=== PATIENT | female | born 1940 | race Caucasian/White ===

== ENCOUNTER 2021-10-24 15:44 | Emergency (ER) | payer MEDICARE, BC ==
[~2021-10-24] VITALS: Ht 165.1 cm; Wt 80.0 kg
[2021-10-24 15:50] VITALS: BP 170/77
--- NOTE | 2021-10-24 16:13 | PHYS DOC ---
Past History Past Surgical History: Hysterectomy Adult General Chief Complaint Chief Complaint: LACERATION/AVULSION HPI HPI Patient is an 81-year-old female presenting via POV for head injury. Injury onset was just prior to arrival. Patient reportedly was attempting to go outside when the door was hit with a fouzia of wind and flew back hitting her anterior head. She did not fall, no loss of consciousness. at bedside, reports patient has history of dementia so entirety of HPI unclear but she can confirm that there was no fall to ground that patient was upright although he did not see mechanism of injury. There was bleeding that was controlled with pressure. Nonetheless, obvious laceration to anterior forehead in addition to right orbit pain concerned prompting him to bring patient in for evaluation. States patient has been at baseline health with no recent medical changes, patient takes an aspirin daily with no other reported anticoagulants or antiplatelet medications. Patient's last tetanus unknown Review of Systems Review of Systems Fourteen body systems of review of systems have been reviewed. See HPI for pertinent positives and negative responses, other leblanc all other systems are negative, non-pertinent or non-contributory Allergies Allergies Allergies Coded Allergies Type Severity Reaction Last Updated Verified No Known Drug Allergies 10/24/21 No Physical Exam Physical Exam Constitutional: Well developed, well nourished, no acute distress, non-toxic appearance. HENT: Normocephalic, atraumatic, bilateral external ears normal, oropharynx moist, no oral exudates, nose normal. Eyes: PERRLA, EOMI, conjunctiva normal, no discharge. Neck: Normal range of motion, no tenderness, supple, no stridor. Cardiovascular: Heart rate regular, sinus rhythm, no murmurs rubs or gallops Lungs & Thorax: Bilateral breath sounds clear to auscultation Abdomen: Bowel sounds normal, soft, no tenderness, no masses, no pulsatile masses. Nonsurgical abdomen, no peritoneal signs Skin: Warm, dry, no erythema, no rash. Large linear laceration present to anterior forehead 8.5 cm in length with epidermis and dermis involvement and minimal subcutaneous fat with no bone showing or other obvious muscle/tendon/ligament Back: No tenderness, no CVA tenderness. Extremities: No tenderness, no cyanosis, no clubbing, ROM intact, no edema. Neurologic: Alert and oriented X 3, cranial nerves II through XII intact normal motor & sensory function, no focal deficits noted. Psychologic: Affect normal, judgement normal, mood normal. Memory impairment due to baseline Alzheimer's but at baseline per at bedside Current Patient Data Vital Signs Vital Signs Date Time Temp Pulse Resp B/P (MAP) Pulse Ox O2 Delivery O2 Flow Rate FiO2 10/24/21 15:50 98.4 60 22 99 Room Air EKG EKG [] Radiology/Procedures Radiology/Procedures EXAM: CT head, facial bones, and cervical spine without contrast INDICATION: Anterior forehead laceration with right orbital pain, neck pain COMPARISON: None TECHNIQUE: Axial CT imaging through the head, facial bones, and cervical spine without intravenous contrast. Sagittal and coronal reformats were obtained. One or more of the following individualized dose reduction techniques were utilized for this examination: 1. Automated exposure control 2. Adjustment of the mA and/or kV according to patient size 3. Use of iterative reconstruction technique. FINDINGS: CT head: The ventricles and sulci are mildly enlarged. There is moderate periventricular and deep white matter hypoattenuation. There is no intracranial hemorrhage, acute infarct, or mass lesion. Basal cisterns are clear. There is a large soft tissue laceration of the forehead and left frontal scalp. No acute fracture. Paranasal sinuses and mastoid air cells are clear. Globes and orbits are intact. There are surgical changes of the left globe. CT facial bones: No acute fracture. The paranasal sinuses and mastoid air cells are clear. Temporal mandibular joints are normally aligned. Globes and orbits are intact. There are surgical changes of the left globe. Large soft tissue laceration of the forehead and left frontal scalp. CT cervical spine: No acute fracture. There is 2 mm anterolisthesis of C7 on T1. Minimal anterolisthesis of C3 on C4 and C4 on C5. Severe disc space narrowing with anterior osteophytes and uncovertebral proliferation at C5-C6 and C6-C7. Mild disc space narrowing at the other levels. There is pannus formation about the dens. Small disc osteophyte complexes at multiple levels. Multilevel moderate or severe facet arthrosis. There is fusion of facets at C3-C4 bilaterally and C4- C5 on the left. Mild foraminal narrowing at C5-C6 and C6-C7. No bony canal narrowing. Prevertebral soft tissues normal. IMPRESSION: 1. No acute intracranial abnormality. 2. Large soft tissue laceration of the forehead and left frontal scalp. 3. No acute fracture of the facial bones or cervical spine. 4. Cerebral volume loss and chronic microvascular ischemic changes. 5. 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 Electronically signed by: Phuong Austin MD (10/24/2021 5:21 PM) [facility] Heart Score C/O Chest Pain: No Risk Factors: Risk Factors: DM, Current or recent (<one month) smoker, HTN, HLP, family history of CAD, obesity. Risk Scores: Risk Factors: DM, Current or recent (<one month) smoker, HTN, HLP, family history of CAD, obesity. Course & Med Decision Making Course & Med Decision Making ABCs unremarkable History physical exam and CT imaging of the head maxillofacial bones and neck unremarkable. Simple laceration sutured with a total of 14 nonabsorbable simple interrupted sutures with great cosmesis No indication for antibiotics. Tetanus updated today. Wound care/laceration care and need for close repeat evaluation in upcoming 4 to 5 days with primary care physician for consideration of suture removal discussed at length with good understanding by patient and . All questions and concerns patient and had discussed and addressed prior to ER departure Dragon Disclaimer Dragon Disclaimer This electronic medical record was generated, in whole or in part, using a voice recognition dictation system. Laceration Repair Lac Repair Laceration #1: 8.5 centimeter linear wound. A time out was undertaken to determine that this was the correct patient and the correct procedure for this patient. The patients laceration was prepped and cleansed in the usual fashion. A total of 4 cc 2% lidocaine with epinephrine administered for anesthetic purposes It was then copiously irrigated with normal saline with high pressure and high volume. The wound was explored in a clear and bloodless field to the base of the wound. There was no evidence of underlying fracture or foreign body. 14 nonabsorbable sutures were placed in a simple interrupted fashion to close the wound. Excellent care was taken to achieve maximal cosmesis. The patient tolerated this procedure well there were no observed nor reported complications. Departure Departure: Impression: Primary Impression: Laceration of forehead without complication Disposition: HOME / SELF CARE / HOMELESS Condition: STABLE Referrals: EMILIANO STOCK MD (PCP) Patient Instructions: Laceration Care, Adult Additional Instructions: You were seen for a laceration. Keep the area clean and dry. You should return to the ED or your PCP office to get your sutures reevaluated for removed in 4-5 days. Return to the ED immediately if you develop any signs of infection like increased pain, redness, fever, or purulent (pus) drainage. Do not take baths, submerge the wound, or use a hot tub until your stitches are removed and the wound is healed. LESIA SHANNON DO Oct 24, 2021 16:13
[2021-10-24] MEDS ORDERED: DIPHTH,PERTUSS(ACELL),TET TOX 0.5 ML DISP.SYRIN. VAX IM ONE (16:30)
--- NOTE | 2021-10-24 17:23 | RAD ---
EXAM: CT head, facial bones, and cervical spine without contrast INDICATION: Anterior forehead laceration with right orbital pain, neck pain COMPARISON: None TECHNIQUE: Axial CT imaging through the head, facial bones, and cervical spine without intravenous co ntrast. Sagittal and coronal reformats were obtained. One or more of the following individualized dose reduction techniques were utilized for this examinat ion: 1. Automated exposure control 2. Adjustment of the mA and/or kV according to patient size 3. Use of iterative reconstruction technique. FINDINGS: CT head: The ventricles and sulci are mildly enlarged. There is moderate periventricular and deep white matter hypoattenuation. There is no intracranial hemorrhage, acute infarct, or mass lesion. Basal cisterns are clear. There is a large soft tissue laceration of the forehead and left frontal scalp. No acute f racture. Paranasal sinuses and mastoid air cells are clear. Globes and orbits are intact. There are s urgical changes of the left globe. CT facial bones: No acute fracture. The paranasal sinuses and mastoid air cells are clear. Temporal m andibular joints are normally aligned. Globes and orbits are intact. There are surgical changes of th e left globe. Large soft tissue laceration of the forehead and left frontal scalp. CT cervical spine: No acute fracture. There is 2 mm anterolisthesis of C7 on T1. Minimal anterolisthesis of C3 on C4 and C4 on C5. Severe disc space narrowing with anterior osteophytes and uncovertebral proliferation at C 5-C6 and C6-C7. Mild disc space narrowing at the other levels. There is pannus formation about the de ns. Small disc osteophyte complexes at multiple levels. Multilevel moderate or severe facet arthrosis . There is fusion of facets at C3-C4 bilaterally and C4-C5 on the left. Mild foraminal narrowing at C 5-C6 and C6-C7. No bony canal narrowing. Prevertebral soft tissues normal. IMPRESSION: 1. No acute intracranial abnormality. 2. Large soft tissue laceration of the forehead and left frontal scalp. 3. No acute fracture of the facial bones or cervical spine. 4. Cerebral volume loss and chronic microvascular ischemic changes. 5. 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 Electronically signed by: Phuong Austin MD (10/24/2021 5:21 PM) [facility]
== END 2021-10-24 18:06 | disposition home or self-care (01) ==
LOC: ER 15:44
DX: S01.81XA Laceration without foreign body of other part of head, initial encounter (principal); W22.8XXA Striking against or struck by other objects, initial encounter; Y93.89 Activity, other specified; Y92.89 Other specified places as the place of occurrence of the external cause; Y99.8 Other external cause status
CPT/HCPCS: 12015; 70450; 70486; 72125; 90471; 90715; 99284